=== PATIENT | female | born 1955 | race Caucasian/White ===

== ENCOUNTER 2018-03-12 09:49 | Emergency (ER) | payer OTHER ==
[2018-03-12 10:06] VITALS: RESP 18; TEMP 99.1; O2SAT 96
--- NOTE | 2018-03-12 11:23 | ED PDOC ---
Arrival/HPI <Lakshmi Quintero - Last Filed: 03/12/18 13:27> - General Historian: Family (son in law translating) EM Caveat: Language Barrier (kyrgyz speaking) - History of Present Illness Narrative History of Present Illness (Text): 03/12/18 11:15 62F no known past medical history presents to the Emergency department with a 3day hx of fevers, chills, headaches, arthralgias and myalgias and vomit x2. Pt states her son in law and her grand daughter with whom she lives are sick with similar symptoms as well. Pt has not taken anything to alleviate her symptoms. Pt feels that she has not gotten better or worse since onset of symptoms. ROS: Pos+ Fevers, Chills, Vomit x2, Sick contacts, arthralgia, myalgia, decreased fluid intake Neg- Diarrhea, bloody stool/urine, shortness of breath, chest pain, <Blake Carey - Last Filed: 03/12/18 15:47> - General Chief Complaint: Fever Time Seen by Provider: 03/12/18 10:23 Past Medical History - Provider Review Nursing Documentation Reviewed: Yes - Infectious Disease Hx of Infectious Diseases: None - Reproductive Menopause: Yes - Musculoskeletal/Rheumatological Hx Arthritis: Yes - Psychiatric Hx Psychophysiologic Disorder: No Hx Anxiety: No Hx Bipolar Disorder: No Hx Depression: No Hx Emotional Abuse: No Hx Hallucinations: No Hx Panic Disorder: No Hx Post Traumatic Stress Disorder: No Hx Psychosis: No Hx Physical Abuse: No Hx Schizophrenia: No Hx Sexual Abuse: No Hx Substance Use: No - Anesthesia Hx Anesthesia: No Hx Anesthesia Reactions: No Hx Malignant Hyperthermia: No <Blake Carey - Last Filed: 03/12/18 15:47> Family/Social History - Physician Review Nursing Documentation Reviewed: Yes Family/Social History: Unknown Family HX Smoking Status: Never Smoked Hx Alcohol Use: No Hx Substance Use: No <Blake Carey - Last Filed: 03/12/18 15:47> Allergies/Home Meds <Lakshmi Quintero - Last Filed: 03/12/18 13:27> <Blake Carey - Last Filed: 03/12/18 15:47> Allergies/Adverse Reactions: Allergies No Known Allergies Allergy (Verified 03/12/18 10:02) Review of Systems - Review of Systems Constitutional: Fevers Eyes: absent: Vision Changes ENT: Normal Respiratory: Cough. absent: SOB Cardiovascular: Normal Gastrointestinal: Vomiting (x2) Musculoskeletal: Arthralgias, Myalgias Skin: Normal Neurological: Headache Endocrine: Normal Psychiatric: Normal <Blake Carey - Last Filed: 03/12/18 15:47> Physical Exam Vital Signs Temp Pulse Resp BP Pulse Ox 03/12/18 13:11 99.1 F 80 18 144/96 H 96 03/12/18 13:03 99.1 F 80 18 144/66 96 03/12/18 10:06 99.1 F 90 18 125/73 96 <Lakshmi Quintero - Last Filed: 03/12/18 13:27> Vital Signs Temp Pulse Resp BP Pulse Ox 03/12/18 10:06 99.1 F 90 18 125/73 96 Appearance: Positive for: Well-Appearing, Non-Toxic Mental Status: Positive for: Alert and Oriented X 3 - Systems Exam Head: Present: Atraumatic, Normocephalic Pupils: Present: PERRL Extroacular Muscles: Present: EOMI Conjunctiva: Present: Normal Mouth: Present: Moist Mucous Membranes Respiratory/Chest: Present: Clear to Auscultation Cardiovascular: Present: Regular Rate and Rhythm, Normal S1, S2. No: Murmurs Abdomen: No: Tenderness, Distention, Guarding Upper Extremity: Present: Normal Inspection, NORMAL PULSES Lower Extremity: Present: Normal Inspection, NORMAL PULSES Neurological: Present: GCS=15, CN II-XII Intact Skin: Present: Warm, Normal Color Lymphatic: No: Cervical Adenopathy Psychiatric: Present: Alert, Oriented x 3 <Blake Carey - Last Filed: 03/12/18 15:47> Medical Decision Making ED Course and Treatment: A 62 year old male who presents to the emergency department with a complaint of chills, headache, arthralgias, myalgias, and vomiting. In agreement with resident note, which includes further HPI details. Patient was seen and evaluated with resident, came up with plan and treatment together. - Lab Interpretations Lab Results: Lab Results 03/12/18 11:21: Influenza Typ A,B (EIA) Pos for influenza a H - RAD Interpretation Radiology Orders: 03/12/18 11:11 CHEST TWO VIEWS (PA/LAT) [RAD] Stat - Medication Orders Current Medication Orders: Discontinued Medications Oseltamivir Phosphate (Tamiflu Susp) 75 mg PO DAILY AKBAR; Protocol Last Admin: 03/12/18 13:09 Dose: 75 mg <Lakshmi Quintero - Last Filed: 03/12/18 13:27> ED Course and Treatment: 03/12/18 12:50 Chest X-ray no acute pathology Rapid flu test positive - RAD Interpretation Radiology Orders: 03/12/18 11:11 CHEST TWO VIEWS (PA/LAT) [RAD] Stat <Blake Carey - Last Filed: 03/12/18 15:47> - Scribe Statement The provider has reviewed the documentation as recorded by the Scribe Farida Nation Provider Scribe Attestation: All medical record entries made by the Scribe were at my direction and personally dictated by me. I have reviewed the chart and agree that the record accurately reflects my personal performance of the history, physical exam, medical decision making, and the department course for this patient. I have also personally directed, reviewed, and agree with the discharge instructions and disposition. <Lakshmi Quintero - Last Filed: 03/12/18 13:27> Disposition/Present on Arrival <Lakshmi Quintero - Last Filed: 03/12/18 13:27> - Present on Arrival Any Indicators Present on Arrival: No History of DVT/PE: No History of Uncontrolled Diabetes: No Urinary Catheter: No History of Decub. Ulcer: No History Surgical Site Infection Following: None - Disposition Have Diagnosis and Disposition been Completed?: Yes Disposition Time: 12:51 Patient Plan: Discharge <Blake Carey - Last Filed: 03/12/18 15:47> - Disposition Diagnosis: Influenza A Disposition: HOME/ ROUTINE Condition: GOOD Discharge Instructions (ExitCare): Flu, Adult (DC) Additional Instructions: BHANU MOURA, thank you for letting us take care of you today. Your provider was Lakshmi Quintero MD and you were treated for FEVER. The emergency med ica care you received today was directed at your acute symptoms. If you were prescribed any medication, please fill it and take as directed. It may take several days for your symptoms to resolve. Return to the Emergency Department if your symptoms worsen, do not improve, or if you have any other problems. Please contact your doctor or call one of the physicians/clinics you have been referred to that are listed on the Patient Visit Information form that is included in your discharge packet. Bring any paperwork you were given at discharge with you along with any medications you are taking to your follow up visit. Our treatment cannot replace ongoing medical care by a primary care provider outside of the emergency department. Thank you for allowing the [facility] team to be part of your care today. If you had an X-Ray or CT scan: A Radiologist will review the ED reading if any change in treatment is needed we will contact you. If you had a blood, urine, or wound culture: It will take several days for the results, if any change in treatment is needed we will contact you. If you had an STI test: It will take 48 hours for the results. Please call after 1 week if you have not heard back. Prescriptions: Oseltamivir Cap [Tamiflu] 75 mg PO BID #9 cap Referrals: [facility] [Outside] - Follow up with primary [facility] [Outside] - Follow up with primary Zarina Price MD [Medical Doctor] - Follow up with primary Forms: [employer] (Dutch)
[2018-03-12] MEDS ORDERED: Oseltamivir 6 MG/ML PO SCH (12:45)
[2018-03-12 13:04] VITALS: PULSE 80
[2018-03-12 13:21] VITALS: BP 144/96
--- NOTE | 2018-03-12 14:07 | RAD ---
Date of service: 03/12/2018 HISTORY: cough, vomit x 2 COMPARISON: None available. TECHNIQUE: Chest PA and lateral FINDINGS: LUNGS: No active pulmonary disease. PLEURA: No significant pleural effusion identified. No pneumothorax apparent. CARDIOVASCULAR: No aortic atherosclerotic calcification present. Normal cardiac size. No pulmonary vascular congestion. OSSEOUS STRUCTURES: No significant abnormalities. VISUALIZED UPPER ABDOMEN: Normal. OTHER FINDINGS: None. IMPRESSION: No acute cardiopulmonary disease appreciated.
== END 2018-03-12 13:11 | disposition home or self-care (01) ==
LOC: ED 09:49
DX: J10.1 Influenza due to other identified influenza virus with other respiratory manifestations (principal)